=== PATIENT | male | born 1985 | race Caucasian/White ===

== ENCOUNTER 2021-11-15 11:17 | Inpatient (IN) | payer OTHER ==
[2021-11-15] MEDS ORDERED: LIDOCAINE 5% TOPICAL PATCH TP ONE (12:11)
[2021-11-15] MEDS ORDERED: ACETAMINOPHEN 1000 MG/100 ML BAG IVPB ONE (12:11)
[2021-11-15] MEDS ORDERED: KETOROLAC TROMETHAMINE 15 MG/ML VIAL IVPUSH ONE ×2 (12:16→12:55)
[2021-11-15] MEDS ORDERED: KETOROLAC TROMETHAMINE 15 MG/ML VIAL IM ONE (12:21)
[2021-11-15] MEDS ORDERED: KETOROLAC TROMETHAMINE 15 MG/ML VIAL ONE (12:47)
[2021-11-15] MEDS ORDERED: ACETAMINOPHEN INJECTION 100 ML IVPB ONE (12:47)
[2021-11-15] MEDS ORDERED: LIDOCAINE 5% TOPICAL PATCH ONE (12:47)
[2021-11-15] MEDS ORDERED: DOCUSATE SODIUM 100 MG CAPSULE (FP) PO PRN (13:21)
[2021-11-15] MEDS ORDERED: PANTOPRAZOLE 40 MG TABLET PO ONE (13:38)
[2021-11-15] MEDS ORDERED: DEXAMETHASONE SOD PHOSPHATE 10 MG/1 ML VIAL ONE ×2 (13:38→21:23)
[2021-11-15] MEDS ORDERED: CYCLOBENZAPRINE HCL 5 MG TABLET ONE (13:39)
[2021-11-15] MEDS: PANTOPRAZOLE 40 MG TABLET PO SCH (14:03)
[2021-11-15] MEDS: CYCLOBENZAPRINE HCL 5 MG TABLET PO SCH (14:03)
[2021-11-15] MEDS: DEXAMETHASONE SOD PHOSPHATE 10 MG/1 ML VIAL IVPUSH SCH ×2 (14:04→21:51)
[2021-11-15 14:27] LABS: BASO % 0.6 % (0-2.0); EOS % 2.2 % (0-4.5); HEMATOCRIT 43.5 % (35.4-49); HEMOGLOBIN 14.9 GM/dL (11.7-16.9); LYMPH % 17.4 % (8-40); MCH 28.8 pg (25.7-33.7); MCHC 34.2 g/dl (32.0-35.9); MEAN PLT VOLUME 7.5 fl (7.5-11.1); MONO % 3.5 % (3.8-10.2); NEUT % 76.3 % (42.8-82.8); PLATELET COUNT 272 10^3/uL (134-434); RBC 5.18 M/mm3 (4.00-5.60); RDW 13.3 % (11.9-15.9); WHITE BLOOD COUNT 6.4 K/mm3 (4.0-10.0)
[2021-11-15 14:28] LABS: BLOOD UREA NITROGEN 19.2 mg/dL (7-18); CALCIUM 9.2 mg/dL (8.5-10.1)
[2021-11-15 14:29] LABS: ALBUMIN 4.1 g/dl (3.4-5.0)
[2021-11-15 14:42] LABS: BILIRUBIN,TOTAL 0.4 mg/dL (0.2-1); CREATININE 0.9 mg/dL (0.55-1.3); TOT PROT 7.7 g/dl (6.4-8.2)
[2021-11-15] MEDS ORDERED: HYDROmorphone HCl 2 MG/ML VIAL ONE (21:24)
[2021-11-15 21:49] LABS: BLOOD UREA NITROGEN 19.6 mg/dL (7-18); CALCIUM 9.4 mg/dL (8.5-10.1)
[2021-11-15] MEDS: HYDROmorphone HCl 2 MG/ML VIAL IVPB PRN (21:51)
[2021-11-15 21:52] LABS: CREATININE 1.1 mg/dL (0.55-1.3)
[2021-11-15 21:53] LABS: TOT PROT 7.7 g/dl (6.4-8.2)
[2021-11-15 21:54] LABS: BILIRUBIN,TOTAL 0.4 mg/dL (0.2-1)
[2021-11-15] MEDS ORDERED: LIDOCAINE PATCH REMOVAL MC ONE (22:00)
[2021-11-15] MEDS: HEPARIN NA (PORCINE) 5,000 UNITS/ML 1ML VIAL SQ SCH (22:19)
[2021-11-15 22:33] VITALS: BMI 26.1
[2021-11-16] MEDS: DEXAMETHASONE SOD PHOSPHATE 10 MG/1 ML VIAL IVPUSH SCH ×4 (03:45→23:32)
[2021-11-16] MEDS: HYDROmorphone HCl 2 MG/ML VIAL IVPB PRN (07:46)
[2021-11-16 08:33] LABS: HEMATOCRIT 42.2 % (35.4-49); HEMOGLOBIN 14.6 GM/dL (11.7-16.9); MCH 29.1 pg (25.7-33.7); MCHC 34.6 g/dl (32.0-35.9); MEAN CELL VOLUME 84.3 fl (80-96); MEAN PLT VOLUME 7.8 fl (7.5-11.1); PLATELET COUNT 310 10^3/uL (134-434); RDW 13.4 % (11.9-15.9); WHITE BLOOD COUNT 15.4 K/mm3 (4.0-10.0)
[2021-11-16 08:50] LABS: ALBUMIN 3.8 g/dl (3.4-5.0); CALCIUM 9.3 mg/dL (8.5-10.1)
[2021-11-16 08:51] LABS: BLOOD UREA NITROGEN 22.3 mg/dL (7-18)
[2021-11-16 08:54] LABS: CREATININE 0.9 mg/dL (0.55-1.3)
[2021-11-16 08:55] LABS: BILIRUBIN,TOTAL 0.4 mg/dL (0.2-1); TOT PROT 7.5 g/dl (6.4-8.2)
[2021-11-16] MEDS: HEPARIN NA (PORCINE) 5,000 UNITS/ML 1ML VIAL SQ SCH ×2 (09:35→22:21)
[2021-11-16] MEDS: PANTOPRAZOLE 40 MG TABLET PO SCH (09:35)
[2021-11-16] MEDS ORDERED: FAMOTIDINE 20 MG/50 ML IVPB 20 MG/50 ML MG IVPB ONE (10:43)
[2021-11-16] MEDS ORDERED: MAG HYDROX/AL HYDROX/SIMETH 30 ML UNIT-DOSE CUP PO PRN (10:43)
[2021-11-16] MEDS ORDERED: METOCLOPRAMIDE HCL INJECTION 10 MG/2 ML VIAL IVPUSH ONE (10:43)
[2021-11-16] MEDS: CYCLOBENZAPRINE HCL 5 MG TABLET PO SCH (12:08)
[2021-11-16] MEDS: oxyCODONE HCL 5 MG TABLET PO PRN (15:03)
[2021-11-16] MEDS: NICOTINE 21 MG/24 HOURS TOPICAL PATCH TD SCH (17:05)
[2021-11-16] MEDS ORDERED: DEXAMETHASONE SOD PHOSPHATE 10 MG/1 ML VIAL IVPUSH SCH (18:00)
[2021-11-16] MEDS: ACETAMINOPHEN 325 MG TABLET (FP) PO PRN (19:03)
[2021-11-17] MEDS: DEXAMETHASONE SOD PHOSPHATE 10 MG/1 ML VIAL IVPUSH SCH ×2 (06:55→14:43)
[2021-11-17] MEDS: oxyCODONE HCL 5 MG TABLET PO PRN ×2 (07:05→13:20)
[2021-11-17] MEDS: CYCLOBENZAPRINE HCL 5 MG TABLET PO SCH (09:41)
[2021-11-17] MEDS: HEPARIN NA (PORCINE) 5,000 UNITS/ML 1ML VIAL SQ SCH (09:41)
[2021-11-17] MEDS: PANTOPRAZOLE 40 MG TABLET PO SCH (09:41)
[2021-11-17] MEDS: NICOTINE 21 MG/24 HOURS TOPICAL PATCH TD SCH (09:44)
[2021-11-17 10:13] VITALS: BP 125/78; PULSE 91; TEMP 98.3
[2021-11-17] MEDS: ACETAMINOPHEN 325 MG TABLET (FP) PO PRN (12:18)
== END 2021-11-17 17:43 | disposition home or self-care (01) | DRG 347 ==
LOC: JER 11:17 → J8W 15:42
PROVIDERS: ADMIT Family Medicine; ATTEND Family Medicine
DX: M51.16 Intervertebral disc disorders with radiculopathy, lumbar region (principal); M79.605 Pain in left leg; R26.2 Difficulty in walking, not elsewhere classified; R42 Dizziness and giddiness; M54.59 Other low back pain; F17.210 Nicotine dependence, cigarettes, uncomplicated
CPT/HCPCS: 0241U-QW; 36415; 72148-TC; 80053; 80061; 83036; 84443; 85025; 85027; 85651; 86140; 93005; 93010; 97116-GP; 97161-GP; 99285-25; J1100; J1644

== ENCOUNTER 2021-12-04 04:25 | Day surgery (SDC) | payer OTHER ==
[2021-11-28 15:44] VITALS: BMI 25.8
[2021-12-04 11:09] VITALS: TEMP 98.6
[2021-12-04] MEDS ORDERED: LIDOCAINE HCL/PF 1% SDV 5ML VIAL ONE (13:38)
[2021-12-04] MEDS ORDERED: LIDOCAINE HCL 1% PRESERVATIVE FREE - 30ML VIAL INF ONE ×3 (13:55)
[2021-12-04] MEDS ORDERED: IOHEXOL 180 MG/1 ML ML IJ ONE ×2 (13:55)
[2021-12-04] MEDS ORDERED: DEXAMETHASONE SOD PHOSPHATE 10 MG/1 ML VIAL IM ONE ×2 (13:55)
[2021-12-04 14:48] VITALS: BP 119/52; PULSE 64
== END 2021-12-04 14:45 | disposition home or self-care (01) ==
LOC: JASU-SURG 04:25
PROVIDERS: ATTEND Pain Medicine Pain Medicine
PROC: 3E0R33Z Introduction of Anti-inflammatory into Spinal Canal, Percutaneous Approach (ICD-10-PCS; 2021-12-04)
PROC: 3E0R3BZ Introduction of Anesthetic Agent into Spinal Canal, Percutaneous Approach (ICD-10-PCS; principal; 2021-12-04 10:30)
DX: M54.16 Radiculopathy, lumbar region (principal)
CPT/HCPCS: 76000-TC-FY; J1100

== ENCOUNTER 2022-02-14 01:12 | Inpatient (IN) | payer OTHER ==
[2022-02-14 01:22] VITALS: BMI 26.5
[2022-02-14] MEDS ORDERED: ACETAMINOPHEN 500 MG TABLET (FP) PO ONE (02:14)
[2022-02-14] MEDS ORDERED: METHOCARBAMOL 500 MG TABLET PO ONE (02:14)
[2022-02-14] MEDS ORDERED: LIDOCAINE 5% TOPICAL PATCH TP ONE (02:14)
[2022-02-14] MEDS ORDERED: METHOCARBAMOL 500 MG TABLET ONE (02:22)
[2022-02-14] MEDS ORDERED: ACETAMINOPHEN 325 MG TABLET (FP) ONE ×2 (02:22→02:24)
[2022-02-14] MEDS ORDERED: LIDOCAINE 5% TOPICAL PATCH ONE (02:23)
[2022-02-14 04:47] LABS: BASO % 0.9 % (0-2.0); EOS % 3.1 % (0-4.5); HEMATOCRIT 43.3 % (35.4-49); HEMOGLOBIN 14.9 GM/dL (11.7-16.9); LYMPH % 27.6 % (8-40); MCH 29.7 pg (25.7-33.7); MCHC 34.4 g/dl (32.0-35.9); MEAN CELL VOLUME 86.4 fl (80-96); MEAN PLT VOLUME 6.9 fl (7.5-11.1); MONO % 9.3 % (3.8-10.2); NEUT % 59.1 % (42.8-82.8); PLATELET COUNT 290 10^3/uL (134-434); RBC 5.01 M/mm3 (4.00-5.60); RDW 14.2 % (11.9-15.9); WHITE BLOOD COUNT 10.3 K/mm3 (4.0-10.0)
[2022-02-14 05:09] LABS: ALBUMIN 3.9 g/dl (3.4-5.0); CALCIUM 9.4 mg/dL (8.5-10.1)
[2022-02-14 05:10] LABS: BLOOD UREA NITROGEN 21.2 mg/dL (7-18)
[2022-02-14 05:14] LABS: BILIRUBIN,TOTAL 0.4 mg/dL (0.2-1); TOT PROT 7.6 g/dl (6.4-8.2)
[2022-02-14] MEDS ORDERED: diazePAM 5 MG TABLET PO ONE (05:16)
[2022-02-14] MEDS ORDERED: SODIUM CHLORIDE 0.9% 500 ML INFUS.BAG IV ONE (05:17)
[2022-02-14] MEDS ORDERED: diazePAM 5 MG TABLET ONE (05:55)
[2022-02-14] MEDS ORDERED: IBUPROFEN 600 MG TABLET (FP) PO SCH (11:30)
[2022-02-14] MEDS: oxyCODONE HCL 5 MG TABLET PO PRN (11:58)
[2022-02-14] MEDS: DEXAMETHASONE SOD PHOSPHATE 10 MG/1 ML VIAL IM SCH ×2 (15:10→22:18)
[2022-02-14] MEDS: PREGABALIN 50 MG CAPSULE PO SCH ×2 (15:11→22:43)
[2022-02-14] MEDS: NICOTINE 14 MG/24 HOURS TOPICAL PATCH TD SCH (15:11)
[2022-02-14] MEDS: CYCLOBENZAPRINE HCL 5 MG TABLET PO SCH ×2 (15:16→22:43)
[2022-02-14] MEDS: HEPARIN NA (PORCINE) 5,000 UNITS/ML 1ML VIAL SQ SCH (22:42)
[2022-02-14] MEDS: LIDOCAINE PATCH REMOVAL MC SCH (22:48)
[2022-02-15] MEDS: oxyCODONE HCL 5 MG TABLET PO PRN (01:29)
[2022-02-15] MEDS: MELATONIN 5 MG TABLETS PO ONE ×2 (02:18→04:02)
[2022-02-15] MEDS ORDERED: MELATONIN 5 MG TABLETS PO ONE (04:00)
[2022-02-15] MEDS: DEXAMETHASONE SOD PHOSPHATE 10 MG/1 ML VIAL IM SCH ×5 (04:03→22:38)
[2022-02-15] MEDS: CYCLOBENZAPRINE HCL 5 MG TABLET PO SCH ×3 (06:09→22:42)
[2022-02-15] MEDS: PREGABALIN 50 MG CAPSULE PO SCH ×3 (06:09→22:42)
[2022-02-15] MEDS: PANTOPRAZOLE 40 MG TABLET PO SCH (10:51)
[2022-02-15] MEDS: HEPARIN NA (PORCINE) 5,000 UNITS/ML 1ML VIAL SQ SCH ×2 (10:52→22:38)
[2022-02-15] MEDS: NICOTINE 14 MG/24 HOURS TOPICAL PATCH TD SCH (10:53)
[2022-02-15] MEDS: LIDOCAINE PATCH REMOVAL MC SCH (22:42)
[2022-02-16] MEDS: DEXAMETHASONE SOD PHOSPHATE 10 MG/1 ML VIAL IM SCH ×3 (04:34→15:16)
[2022-02-16] MEDS: CYCLOBENZAPRINE HCL 5 MG TABLET PO SCH ×2 (06:14→13:31)
[2022-02-16] MEDS: PREGABALIN 50 MG CAPSULE PO SCH ×2 (06:14→13:30)
[2022-02-16] MEDS: HEPARIN NA (PORCINE) 5,000 UNITS/ML 1ML VIAL SQ SCH (09:09)
[2022-02-16] MEDS: PANTOPRAZOLE 40 MG TABLET PO SCH (09:09)
[2022-02-16] MEDS: NICOTINE 14 MG/24 HOURS TOPICAL PATCH TD SCH (09:09)
[2022-02-16 15:14] VITALS: BP 148/83; PULSE 102; RESP 18; TEMP 98.2
== END 2022-02-16 15:43 | disposition home or self-care (01) | DRG 347 ==
LOC: JER 01:12 → JERBED 06:06 → J7W 11:09
PROVIDERS: ADMIT Family Medicine; ATTEND Family Medicine
DX: M51.16 Intervertebral disc disorders with radiculopathy, lumbar region (principal); R93.89 Abnormal findings on diagnostic imaging of other specified body structures; F17.210 Nicotine dependence, cigarettes, uncomplicated; Z98.890 Other specified postprocedural states
CPT/HCPCS: 36415; 72131-TC; 72158-TC; 80053; 85025; 85651; 86140; 87040; 93005; 93010; 97116-GP; 97161-GP; 99285-25; C9803-CS; J1100; J1644; U0003; U0005